=== PATIENT | male | born 1985 | race African-American/Black ===

== ENCOUNTER 2019-02-27 10:24 | Emergency (ER) | payer BC, MEDICAID ==
--- NOTE | 2019-02-27 10:49 | ERPHSYRPT ---
- History of Present Illness Time Seen by Provider: 02/27/19 10:37 Source: patient Exam Limitations: no limitations Physician History: about 30 minutes ago at home pt cut his right thumb tip on a potato slicer; denies numbness. last tetanus is within 5 years. good rom of right upper extremity.l - Review of Systems Skin: Other (laceration of right thumb tip today.) Neurological: No Sensory Changes - Physical Exam General Appearance: alert Shoulder Exam: normal ROM Elbow/Forearm Exam: normal ROM Wrist Exam: normal ROM Hand Exam: normal ROM, laceration (1 cm very superficial laceration to right thumb tip.) Neuro/Tendon Exam: normal sensation, normal motor functions - Course Nursing assessment & vital signs reviewed: Yes - Departure Departure Disposition: Home Clinical Impression: Laceration of thumb Clinical Impression: (Ruled Out): Laceration of right thumb with complication Condition: Stable Critical Care Time: No Referrals: TG VICTORIA MD [Primary Care Provider] - Additional Instructions: neosporin & bandage to right thumb tip laceration for 10 days. keep wound dry. Prescriptions: Cephalexin Monohydrate [Keflex] 500 mg PO TID #20 capsule
[2019-02-27] MEDS ORDERED: BACIGUENT PACKET TP ONE (10:59)
[2019-02-27] MEDS ORDERED: BACIGUENT PACKET ONE (11:00)
[2019-02-27 11:11] VITALS: BP 121/63; PULSE 60; O2SAT 100
== END 2019-02-27 11:08 | disposition home or self-care (01) ==
LOC: ED 10:24
DX: S61.011A Laceration without foreign body of right thumb without damage to nail, initial encounter (principal); W45.8XXA Other foreign body or object entering through skin, initial encounter; Y93.G3 Activity, cooking and baking
CPT/HCPCS: 99283; A9270-GY